=== PATIENT | female | born 1975 | race Caucasian/White ===

== ENCOUNTER → 2016-11-16 | Outpatient (CLI) | payer BC ==
--- NOTE | 2016-11-16 11:39 | ECHOF ---
Referral Reason:M34.9 systemic sclerosis MEASUREMENTS -------- HEIGHT: 154.9 cm WEIGHT: 65.8 kg BP: IVSd: 1.0 cm (0.6 - 1.1) LVIDd: 4.3 cm (3.9 - 5.3) LVPWd: 1.1 cm (0.6 - 1.1) IVSs: 1.4 cm LVIDs: 2.4 cm LVPWs: 1.6 cm Ao Diam: 3.0 cm (2.0 - 3.7) AV Cusp: 1.6 cm (1.5 - 2.6) LA Diam: 2.7 cm (2.7 - 3.8) MV EXCURSION: 16.074 mm (> 18.000) MV EF SLOPE: 64 mm/s (70 - 150) EPSS: 0.2 cm MV E Sukhi: 0.97 m/s MV DecT: 169 ms MV A Sukhi: 0.86 m/s MV E/A Ratio: 1.13 RAP: 5.00 mmHg RVSP: 11.51 mmHg FINDINGS -------- Sinus rhythm. This was a technically good study. Left ventricular wall thickness is normal. Overall left ventricular systolic function is normal with, an EF between 55 - 60 %. The right ventricle is normal in size and function. The left atrium is normal in size. The right atrium is normal in size. Aortic valve is trileaflet and is mildly thickened. There is no evidence of aortic regurgitation. The mitral valve leaflets are mildly thickened. Mild mitral regurgitation is present. Mild tricuspid regurgitation present. The right ventricular systolic pressure, as measured by Doppler, is 11.51mmHg. Trace/mild (physiologic) pulmonic regurgitation. The aortic root size is normal. The pericardium is normal. CONCLUSIONS -------- 1. Sinus rhythm. 2. The mitral valve leaflets are mildly thickened. 3. Mild mitral regurgitation is present. 4. Mild tricuspid regurgitation present. 5. The right ventricular systolic pressure, as measured by Doppler, is 11.51mmHg. 6. Trace/mild (physiologic) pulmonic regurgitation. 7. The aortic root size is normal. 8. The pericardium is normal. 9. This was a technically good study. 10. Left ventricular wall thickness is normal. 11. Overall left ventricular systolic function is normal with, an EF between 55 - 60 %. 12. The right ventricle is normal in size and function. 13. The left atrium is normal in size. 14. The right atrium is normal in size. 15. Aortic valve is trileaflet and is mildly thickened. 16. There is no evidence of aortic regurgitation. BAND BI[employer] MACHINE OPERATOR: Katy Tobias RDCS
== END | disposition home or self-care (01) ==
LOC: RADECHMAIN 08:30
PROVIDERS: ATTEND Internal Medicine Rheumatology
DX: I08.8 Other rheumatic multiple valve diseases (principal)
CPT/HCPCS: 93306

== ENCOUNTER 2021-01-12 20:04 | Emergency (ER) | payer OTHER ==
[2021-01-12 20:15] VITALS: RESP 16; TEMP 97.3
[2021-01-12] MEDS ORDERED: SODIUM CHLORIDE 0.9% 1,000 ML IV STA (20:39)
--- NOTE | 2021-01-12 20:54 | ED ---
General Adult HPI - General Chief complaint: Back Pain/Injury Stated complaint: Leg pain Time Seen by Provider: 01/12/21 20:24 Source: patient, RN notes reviewed Mode of arrival: EMS Limitations: no limitations - History of Present Illness Initial comments: 45-year-old female presents to the emergency room for a chief complaint of fall. Patient fell out of the top bunk 2 days ago in [facility] apparently. Today patient has not been walking, staff unsure if she was walking yesterday. Patient reports she has not because the pain is too severe. Patient is complaining of upper back pain as well as right and left wrist pain. Patient states she is unable to move her legs secondary to pain. Patient is also usually on Suboxone which she has not had in 5 days. Patient has no other complaints at this time including shortness of breath, chest pain, abdominal pain, nausea or vomiting, headache, or visual changes. - Related Data Allergies Allergy/AdvReac Type Severity Reaction Status Date / Time No Known Allergies Allergy Verified 01/12/21 20:16 Review of Systems ROS Statement: Those systems with pertinent positive or pertinent negative responses have been documented in the HPI. ROS Other: All systems not noted in ROS Statement are negative. Past Medical History Additional Past Medical History / Comment(s): Date of last positivie culture/infection: 2010 MDRO Source:: dia Additional Past Surgical History / Comment(s): facial plastic surgery Past Psychological History: Depression, PTSD Smoking Status: Current every day smoker Past Alcohol Use History: Daily Past Drug Use History: Heroin, Marijuana General Exam Limitations: no limitations General appearance: alert, in no apparent distress Head exam: Present: atraumatic, normocephalic, normal inspection Eye exam: Present: normal appearance, PERRL, EOMI. Absent: scleral icterus, conjunctival injection, periorbital swelling ENT exam: Present: normal exam, mucous membranes moist Neck exam: Absent: tenderness (no cervical spine tenderness) Respiratory exam: Present: normal lung sounds bilaterally. Absent: respiratory distress, wheezes, rales, rhonchi, stridor Cardiovascular Exam: Present: regular rate, normal rhythm, normal heart sounds. Absent: systolic murmur, diastolic murmur, rubs, gallop, clicks GI/Abdominal exam: Present: soft, normal bowel sounds. Absent: distended, tenderness, guarding, rebound, rigid Rectal exam: Absent: normal inspection, normal rectal tone Extremities exam: Present: other (see MDM) Back exam: Present: other (generalized upper back tenderness. no ecchymosis or contusion) Neurological exam: Present: alert, oriented X3. Absent: motor sensory deficit Course Vital Signs 01/12/21 01/12/21 20:06 22:02 Temperature 97.3 F L Pulse Rate 65 84 Respiratory 16 16 Rate Blood Pressure 106/83 156/76 O2 Sat by Pulse 95 99 Oximetry - Reevaluation(s) Reevaluation #1: 01/12/21 21:41 on hold with transfer line [facility] Reevaluation #2: 01/12/21 21:55 Transfer team was not able to connect me to trauma surgeon or ER, states they will call back. Reevaluation #3: 01/12/21 22:[address] Almeida, general surgeon, who will call back after approval from neurosurgeon. Reevaluation #4: 01/12/21 22:14 We do have a confirmed accepting as Dr Almeida from [facility] transfer customer solutions teammate Jeanine Medical Decision Making - Medical Decision Making Patient presents with history of fall over 2 days ago from top bunk of [facility]. Patient was not ambulating today according to staff. Complaining of upper back pain. Denies neck pain. No neck tenderness. Patient is complaining of generalized upper back tenderness on exam. CT brain and C-spine was obtained as well as several x-rays including the thoracic spine. I did get a call from radiology that patient does have a C5 fracture. C-collar applied. Dr Smith notified and evaluated patient at bedside. Rectal exam was performed, was not able to detect rectal tone. Limited movement of right fingers, unable to lift arm. Sensation limited in right hand. Not able to move the left hand. Patient able to move digits of right foot and has sensation but unable to lift right l eg. minimal movement of left foot, no sensation. Cap refill < 2 seconds in BLE, DP pulses 2+. Xrays of thoracic spine obtained and films reviewed without fracture. Called [facility] as charted. Reports and films were reviewed of several x-rays which were all negative. These include thoracic spine, bilateral hand, right wrist, chest, and pelvis. - Lab Data Result diagrams: 01/12/21 20:41 01/12/21 20:41 Lab Results 01/12/21 01/12/21 01/12/21 Range/Units 20:41 20:41 21:57 WBC 6.2 (3.8-10.6) k/uL RBC 3.20 L (3.80-5.40) m/uL Hgb 12.2 (11.4-16.0) gm/dL Hct 34.5 (34.0-46.0) % MCV 107.6 H (80.0-100.0) fL MCH 38.1 H (25.0-35.0) pg MCHC 35.4 (31.0-37.0) g/dL RDW 16.9 H (11.5-15.5) % Plt Count 369 (150-450) k/uL MPV 7.5 Neutrophils % 67 % Lymphocytes % 20 % Monocytes % 8 % Eosinophils % 3 % Basophils % 0 % Neutrophils # 4.2 (1.3-7.7) k/uL Lymphocytes # 1.2 (1.0-4.8) k/uL Monocytes # 0.5 (0-1.0) k/uL Eosinophils # 0.2 (0-0.7) k/uL Basophils # 0.0 (0-0.2) k/uL Manual Slide Review Performed Anisocytosis Slight Macrocytosis Marked A PT 9.9 (9.0-12.0) sec INR 0.9 (<1.2) APTT 26.4 (22.0-30.0) sec Sodium 140 (137-145) mmol/L Potassium 4.1 (3.5-5.1) mmol/L Chloride 107 (98-107) mmol/L Carbon Dioxide 19 L (22-30) mmol/L Anion Gap 14 mmol/L BUN 19 H (7-17) mg/dL Creatinine 0.49 L (0.52-1.04) mg/dL Est GFR (CKD-EPI)AfAm >90 (>60 ml/min/1.73 sqM) Est GFR (CKD-EPI)NonAf >90 (>60 ml/min/1.73 sqM) Glucose 84 (74-99) mg/dL Calcium 9.8 (8.4-10.2) mg/dL Magnesium 1.8 (1.6-2.3) mg/dL Total Bilirubin 0.7 (0.2-1.3) mg/dL AST 52 H (14-36) U/L ALT 28 (4-34) U/L Alkaline Phosphatase 49 (38-126) U/L Total Protein 8.0 (6.3-8.2) g/dL Albumin 4.9 (3.5-5.0) g/dL Urine Color Urine Appearance (Clear) Urine pH (5.0-8.0) Ur Specific [place] (1.001-1.035) Urine Protein (Negative) Urine Glucose (UA) (Negative) Urine Ketones (Negative) Urine Blood (Negative) Urine Nitrite (Negative) Urine Bilirubin (Negative) Urine Urobilinogen (<2.0) mg/dL Ur Leukocyte Esterase (Negative) Urine HCG, Qual (Not Detectd) Urine Opiates Screen (NotDetected) Ur Oxycodone Screen (NotDetected) Urine Methadone Screen (NotDetected) Ur Propoxyphene Screen (NotDetected) Ur Barbiturates Screen (NotDetected) U Tricyclic Antidepress (NotDetected) Ur Phencyclidine Scrn (NotDetected) Ur Amphetamines Screen (NotDetected) U Methamphetamines Scrn (NotDetected) U Benzodiazepines Scrn (NotDetected) Urine Cocaine Screen (NotDetected) U Marijuana (THC) Screen (NotDetected) 01/12/21 01/12/21 Range/Units 21:57 21:57 WBC (3.8-10.6) k/uL RBC (3.80-5.40) m/uL Hgb (11.4-16.0) gm/dL Hct (34.0-46.0) % MCV (80.0-100.0) fL MCH (25.0-35.0) pg MCHC (31.0-37.0) g/dL RDW (11.5-15.5) % Plt Count (150-450) k/uL MPV Neutrophils % % Lymphocytes % % Monocytes % % Eosinophils % % Basophils % % Neutrophils # (1.3-7.7) k/uL Lymphocytes # (1.0-4.8) k/uL Monocytes # (0-1.0) k/uL Eosinophils # (0-0.7) k/uL Basophils # (0-0.2) k/uL Manual Slide Review Anisocytosis Macrocytosis PT (9.0-12.0) sec INR (<1.2) APTT (22.0-30.0) sec Sodium (137-145) mmol/L Potassium (3.5-5.1) mmol/L Chloride (98-107) mmol/L Carbon Dioxide (22-30) mmol/L Anion Gap mmol/L BUN (7-17) mg/dL Creatinine (0.52-1.04) mg/dL Est GFR (CKD-EPI)AfAm (>60 ml/min/1.73 sqM) Est GFR (CKD-EPI)NonAf (>60 ml/min/1.73 sqM) Glucose (74-99) mg/dL Calcium (8.4-10.2) mg/dL Magnesium (1.6-2.3) mg/dL Total Bilirubin (0.2-1.3) mg/dL AST (14-36) U/L ALT (4-34) U/L Alkaline Phosphatase (38-126) U/L Total Protein (6.3-8.2) g/dL Albumin (3.5-5.0) g/dL Urine Color Yellow Urine Appearance Clear (Clear) Urine pH 6.0 (5.0-8.0) Ur Specific [place] 1.025 (1.001-1.035) Urine Protein Negative (Negative) Urine Glucose (UA) Negative (Negative) Urine Ketones 1+ H (Negative) Urine Blood Negative (Negative) Urine Nitrite Negative (Negative) Urine Bilirubin Negative (Negative) Urine Urobilinogen <2.0 (<2.0) mg/dL Ur Leukocyte Esterase Negative (Negative) Urine HCG, Qual Not Detected (Not Detectd) Urine Opiates Screen Not Detected (NotDetected) Ur Oxycodone Screen Not Detected (NotDetected) Urine Methadone Screen Not Detected (NotDetected) Ur Propoxyphene Screen Not Detected (NotDetected) Ur Barbiturates Screen Not Detected (NotDetected) U Tricyclic Antidepress Not Detected (NotDetected) Ur Phencyclidine Scrn Not Detected (NotDetected) Ur Amphetamines Screen Not Detected (NotDetected) U Methamphetamines Scrn Not Detected (NotDetected) U Benzodiazepines Scrn Not Detected (NotDetected) Urine Cocaine Screen Not Detected (NotDetected) U Marijuana (THC) Screen Not Detected (NotDetected) Critical Care Time Critical Care Time: Yes (33) Critical Care Time: 33 minutes of critical care time utilized in caring for this patient with multiple bedside evaluations, neuro examination, speaking with multiple hospitalist medical director including ER team and trauma surgeon. Disposition Clinical Impression: C5 cervical fracture Disposition: OTHER INSTITUTION NOT DEFINED Is patient prescribed a controlled substance at d/c from ED?: No Referrals: None,Stated [Primary Care Provider] - 1-2 days Time of Disposition: 22:15 - Out of Hospital Transfer - Req. Specs Out of Hospital Transfer - Requested Specifics: Other [facility] ([facility])
[2021-01-12 20:55] LABS: Anisocytosis Slight; Basophils % (A) 0 %; Eosinophils # (A) 0.2 k/uL (0-0.7); Eosinophils % (A) 3 %; HCT 34.5 % (34.0-46.0); HGB 12.2 gm/dL (11.4-16.0); Lymphocytes # (A) 1.2 k/uL (1.0-4.8); Lymphocytes % (A) 20 %; MCH 38.1 pg (25.0-35.0); MCHC 35.4 g/dL (31.0-37.0); MCV 107.6 fL (80.0-100.0); Macrocytosis Marked; Mean Platelet Volume 7.5; Monocytes # (A) 0.5 k/uL (0-1.0); Monocytes % (A) 8 %; Neutrophils # (A) 4.2 k/uL (1.3-7.7); Neutrophils % (A) 67 %; Platelet Count 369 k/uL (150-450); RDW 16.9 % (11.5-15.5); WBC 6.2 k/uL (3.8-10.6)
[2021-01-12 21:00] LABS: ALT 28 U/L (4-34); AST 52 U/L (14-36); African American GFR (CKD) >90 (>60 ml/min/1.73 sqM); Albumin 4.9 g/dL (3.5-5.0); Alkaline Phosphatase 49 U/L (38-126); Anion Gap 14 mmol/L; Blood Urea Nitrogen 19 mg/dL (7-17); Calcium 9.8 mg/dL (8.4-10.2); Carbon Dioxide 19 mmol/L (22-30); Chloride 107 mmol/L (98-107); Glucose 84 mg/dL (74-99); Magnesium 1.8 mg/dL (1.6-2.3); Non-African American GFR(CKD) >90 (>60 ml/min/1.73 sqM); Potassium 4.1 mmol/L (3.5-5.1); Sodium 140 mmol/L (137-145); Total Bilirubin 0.7 mg/dL (0.2-1.3)
--- NOTE | 2021-01-12 21:23 | CT ---
EXAMINATION TYPE: CT brain cspine wo con DATE OF EXAM: 01/12/2021 COMPARISON: None HISTORY: Fall. CT DLP: 1302.4 mGycm Automated exposure control for dose reduction was used. Images obtained of the brain and cervical spine without contrast. Ventricles have normal size. There is no mass effect nor midline shift. There is no sign of intracran ial hemorrhage. The calvarium is intact. There is opacification of the left maxillary sinus with wall thickening. There is expansion into the nasopharynx. There is normal aeration of the mastoid sinuses. There is anterior subluxation of C5 in relation to C6 of 5.5 mm. There is fracture of the lamina and left side facet of the C5 vertebra. There is fracture of the left transverse process of C5 which exte nds into the foramen transversarium. There is anterior subluxation of this inferior articular facet o f on the right side. This is almost a locked facet. There is fracture of the left side pedicle of C5. There is anterior spurring from C5 to T1. The skul l base is intact. There is normal aeration of the mastoid sinuses. IMPRESSION: Negative CT scan of the brain. Opacification of the left maxillary sinus with expansion and consisten t with mucocele. There is C5 vertebra fracture with instability and anterior subluxation of C5 in relation to C6. Ther e are fractures of the left side pedicle and lamina and transverse process of C5 there is almost unil ateral locked facet of C5-6 on the right side. This fracture of the superior and inferior articular f acets of C5 on the left side. This exam was discussed with ER attending staff at 9:15 PM.
[2021-01-12] MEDS ORDERED: MORPHINE SULFATE 4 MG/ML SYRINGE IVP STA (21:33)
--- NOTE | 2021-01-12 21:42 | XR ---
EXAMINATION TYPE: XR thoracic spine complete DATE OF EXAM: 01/12/2021 COMPARISON: NONE HISTORY: Fall. Pain. TECHNIQUE: 3 views FINDINGS: Thoracic vertebra have normal spacing and alignment. Posterior elements are intact. There i s no paraspinal mass. IMPRESSION: Normal thoracic spine exam.
--- NOTE | 2021-01-12 21:43 | XR ---
EXAMINATION TYPE: XR wrist complete RT DATE OF EXAM: 01/12/2021 COMPARISON: NONE HISTORY: Fall. Pain. TECHNIQUE: 4 views FINDINGS: I see no fracture nor dislocation. Joint spaces are normal. Metacarpals are intact. IMPRESSION: Negative right wrist exam.
--- NOTE | 2021-01-12 21:43 | XR ---
EXAMINATION TYPE: XR hand complete bilateral DATE OF EXAM: 01/12/2021 COMPARISON: NONE HISTORY: Fall. Pain. TECHNIQUE: 6 views FINDINGS: The metacarpals are intact. I see no fracture nor dislocation. There are no erosions. Joint spaces are fairly normal. IMPRESSION: Negative bilateral hand exam.
--- NOTE | 2021-01-12 21:44 | XR ---
EXAMINATION TYPE: XR chest 2V DATE OF EXAM: 01/12/2021 COMPARISON: NONE HISTORY: Pain. Fall. TECHNIQUE: FINDINGS: Heart and mediastinum are normal. Lungs are clear. Diaphragm is normal. Bony thorax appears normal. IMPRESSION: Old chest.
--- NOTE | 2021-01-12 21:45 | XR ---
EXAMINATION TYPE: XR pelvis AP view DATE OF EXAM: 01/12/2021 COMPARISON: NONE HISTORY: Fall. Pain. TECHNIQUE: Single view FINDINGS: Pelvic ring is intact. Proximal femurs and hip joints are intact. Sacroiliac joints are int act. IMPRESSION: Normal pelvis. No fracture.
[2021-01-12 22:02] VITALS: BP 156/76; PULSE 84
[2021-01-12 22:02] LABS: Appearance,Urine Clear (Clear); Bilirubin,Urine Negative (Negative); Blood,Urine Negative (Negative); Color,Urine Yellow; Glucose,Urine (UA) Negative (Negative); Ketones,Urine 1+ (Negative); Leukocyte Esterase,Urine Negative (Negative); Nitrite,Urine Negative (Negative); Protein,Urine Negative (Negative); Specific Gravity,Urine 1.025 (1.001-1.035); Urobilinogen,Urine <2.0 mg/dL (<2.0)
[2021-01-12 22:12] LABS: Amphetamine Screen,Urine Not Detected (NotDetected); Barbiturate Screen,Urine Not Detected (NotDetected); Benzodiazepines Screen,Urine Not Detected (NotDetected); Cocaine Screen,Urine Not Detected (NotDetected); Methadone Screen, Urine Not Detected (NotDetected); Opiate Screen,Urine Not Detected (NotDetected); Oxycodone Screen, Urine Not Detected (NotDetected); Phencyclidine Screen,Urine Not Detected (NotDetected); Tricyclic Antidepressant,Urine Not Detected (NotDetected); Urn Cannabinoid Scrn Not Detected (NotDetected)
[2021-01-12 22:18] LABS: INR 0.9 (<1.2); Partial Thromboplastin Time 26.4 sec (22.0-30.0); Prothrombin Time 9.9 sec (9.0-12.0)
== END 2021-01-12 22:30 | disposition other institution (70) ==
LOC: EC 20:04
DX: S12.400A Unspecified displaced fracture of fifth cervical vertebra, initial encounter for closed fracture (principal); F32.9 Major depressive disorder, single episode, unspecified; F17.200 Nicotine dependence, unspecified, uncomplicated; F12.90 Cannabis use, unspecified, uncomplicated; F19.90 Other psychoactive substance use, unspecified, uncomplicated; W06.XXXA Fall from bed, initial encounter
CPT/HCPCS: 36415; 80053; 83735; 85025; 85610; 85730; 81003; 81025; 80306; 73130; 72072; 72170; 73110; 71046; 72125; 70450; 99291; 96374; L0120; J2270

== ENCOUNTER 2021-05-26 16:41 | Emergency (ER) | payer OTHER ==
--- NOTE | 2021-05-26 17:42 | ED ---
Head Injury HPI - General Chief complaint: Head Injury Stated complaint: Fall-Head Injury Time Seen by Provider: 05/26/21 17:07 Source: patient Mode of arrival: wheelchair Limitations: no limitations - History of Present Illness Initial comments: Patient is a 45-year-old female with history of alcohol abuse, presenting to the emergency department after she fell backwards today and hit her head on a TV stand. She denies loss of consciousness. She states she is having pain in the back of her head where she hit, is having some mild neck pain as well. She states she has had prior neck surgeries in the past. She denies any numbness and tingling of her extremities. She denies any blood thinners. She denies any chest pain or shortness of breath, no pain in her extremities. She denies any other injuries from this fall. A friend of hers dropped her off at the ER. She is no further complaints. The c-collar was placed in triage. Her vitals are stable. - Related Data Allergies/Adverse reactions: Allergies Allergy/AdvReac Type Severity Reaction Status Date / Time No Known Allergies Allergy Verified 01/12/21 20:16 Review of Systems ROS Statement: Those systems with pertinent positive or pertinent negative responses have been documented in the HPI. ROS Other: All systems not noted in ROS Statement are negative. Past Medical History Additional Past Medical History / Comment(s): Date of last positivie culture/infection: 2010 MDRO Source:: chin Additional Past Surgical History / Comment(s): facial plastic surgery Past Psychological History: Depression, PTSD Smoking Status: Current every day smoker Past Alcohol Use History: Daily Past Drug Use History: Heroin, Marijuana General Exam - General Exam Comments Initial Comments: GENERAL: Patient is well-developed and well-nourished. Patient is nontoxic and in no acute distress, does appear intoxicated. HEAD: Atraumatic, normocephalic. EYES: Pupils equal round and reactive to light, extraocular movements intact, sclera anicteric, conjunctiva are normal. Eyelids were unremarkable. ENT: TMs normal, nares patent, oropharynx clear without exudates. Moist mucous membranes. NECK: C-collar placed in triage, there is some mild neck pain upon palpation through the c-collar. Upon clearance of the c-collar, patient has full pain-free range of motion of the C-spine, no acute tenderness anywhere. Supple without lymphadenopathy or JVD. LUNGS: Unlabored respirations. Breath sounds clear to auscultation bilaterally and equal. No wheezes rales or rhonchi. HEART: Regular rate and rhythm without murmurs, rubs or gallops. ABDOMEN: Soft, nontender, normoactive bowel sounds. No guarding, no rebound. No masses appreciated. : Deferred MUSCULOSKELETAL: Normal extremities with adequate strength and normal range of motion, no pitting or edema. No clubbing or cyanosis. NEUROLOGICAL: Patient is alert and oriented x 3. Motor and sensory are also intact. Cranial nerves II through XII grossly intact. Symmetrical smile. PSYCH: Normal mood, normal affect, intoxicated. SKIN: Warm, Dry, normal turgor, no rashes. Patient has a 2 cm laceration to the posterior aspect of the scalp. No active bleeding. Limitations: no limitations Course Vital Signs 05/26/21 16:58 Temperature 97.6 F Pulse Rate 101 H Respiratory 20 Rate Blood Pressure 112/79 O2 Sat by Pulse 98 Oximetry Procedures - Laceration Laceration #1 Consent Obtained: verbal consent Indication: laceration Site: scalp (Posterior aspect) Size (cm): 2 Description: linear Depth: simple, single layer Patient Tolerated Procedure: well Additional Comments: 4 sharon were used to close her wound. She tolerated procedure well. Medical Decision Making - Medical Decision Making Patient is a 45-year-old female, here after falling backwards hitting her head on a coffee table. She is intoxicated. She was dropped off by a friend of hers. The patient has a 2 cm wound to the posterior scalp, no active bleeding, she is not on blood thinners. CT of the brain and C-spine showed no acute process seen at this time. Patient's wound was closed with 4 sharon. She tolerated procedure well. She is stable for discharge. I recommended taking Tylenol or Motrin for any discomfort. She is agreeable to this. She is calling her friend to pick her back up. Parents verbalized understanding. Case discussed with Dr. Arora. Disposition Clinical Impression: Fall, Laceration of scalp Disposition: HOME SELF-CARE Condition: Stable Instructions (If sedation given, give patient instructions): Staple Care (ED) Additional Instructions: Please return to the Emergency Department if symptoms worsen or any other concerns. Your may take Tylenol or ibuprofen for any discomfort. Apply ice to the head. S taples need to be removed at 7-10 days, you may come back to the ER for removal. Is patient prescribed a controlled substance at d/c from ED?: No Referrals: Elver Lopez MD [Primary Care Provider] - 1-2 days Time of Disposition: 18:17
--- NOTE | 2021-05-26 17:52 | CT ---
EXAMINATION TYPE: CT brain eliana jeronimo con DATE OF EXAM: 05/26/2021 COMPARISON: 01/12/2021. HISTORY: Fall with laceration. CT DLP: 1408.8 mGycm Automated exposure control for dose reduction was used. TECHNIQUE: CT scan of the head and cervical spine are performed without contrast. FINDINGS: There is no acute intracranial hemorrhage, mass effect, or midline shift identified. The ventricles and sulci are within normal limits in size. The globes are intact. There is complete opa cification of the left maxillary sinus. Cervical spine is visualized in its entirety from C1 through upper thoracic levels and demonstrates s atisfactory alignment without evidence of acute fracture or dislocation. Prevertebral soft tissue ap pears within normal limits. The C1-C2 articulation is unremarkable. C5-T2 anterior and posterior in strumented fusion seen. IMPRESSION: No acute intracranial or cervical spine abnormality.
[2021-05-26 19:20] VITALS: BP 100/55; PULSE 85; RESP 18; TEMP 97.9
== END 2021-05-26 19:16 | disposition home or self-care (01) ==
LOC: EC 16:41
DX: S01.01XA Laceration without foreign body of scalp, initial encounter (principal); F17.200 Nicotine dependence, unspecified, uncomplicated; F12.90 Cannabis use, unspecified, uncomplicated; F11.90 Opioid use, unspecified, uncomplicated; W18.30XA Fall on same level, unspecified, initial encounter; W22.8XXA Striking against or struck by other objects, initial encounter
CPT/HCPCS: 12001; 70450; 72125; 99284